=== PATIENT | male | born 1945 | race Caucasian/White ===

== ENCOUNTER 2022-08-28 09:53 | Emergency (ER) | payer OTHER ==
[~2022-08-28] VITALS: Ht 182.9 cm; Wt 92.1 kg
[2022-08-28 10:19] LABS: BASOPHILS % (AUTO) 0.2 % (0.0-5.0); EOSINOPHILS % (AUTO) 2.4 % (0.0-8.0); HEMATOCRIT 42.5 % (42-54); LYMPHOCYTES % (AUTO) 23.8 % (21.0-51.0); MEAN CORPUSCULAR HEMOGLOBIN 30.8 pg (27.0-33.0); MEAN CORPUSCULAR HGB CONC 33.4 g/dL (32.0-36.0); MEAN CORPUSCULAR VOLUME 92.2 fL (79-99); MONOCYTES % (AUTO) 10.5 % (3.0-13.0); NEUTROPHILS % (AUTO) 62.7 % (40.0-77.0); PLATELET COUNT (AUTO) 168 K/uL (130-400); RED BLOOD CELL COUNT(AUTO) 4.61 MIL/uL (4.50-6.20); RED CELL DISTRIBUTION WIDTH 12.1 % (11.0-15.5); WHITE BLOOD COUNT (AUTO) 12.1 K/uL (4.8-10.8)
[2022-08-28 10:31] LABS: ALBUMIN 3.7 g/dL (3.5-5.0); CREATININE 1.2 mg/dL (0.5-1.5); POTASSIUM 4.6 mmol/L (3.5-5.1); TOTAL PROTEIN, SERUM 6.8 g/dL (6.0-8.3)
[2022-08-28 11:06] VITALS: BP 94/62
[2022-08-28] MEDS ORDERED: OSEL75 PO (12:31)
[2022-08-28] MEDS ORDERED: NYST5ORA7 (12:31)
== END 2022-08-28 12:42 | disposition home or self-care (01) ==
LOC: EDH 09:53
DX: J10.1 Influenza due to other identified influenza virus with other respiratory manifestations (principal); B37.0 Candidal stomatitis; J45.909 Unspecified asthma, uncomplicated; Z20.822 Contact with and (suspected) exposure to COVID-19
CPT/HCPCS: 99285; 71045; 87635; 84484; 80053; 85025; 87804 ×2; 36415; 93005; C9803

== ENCOUNTER → 2023-10-11 | Outpatient (CLI) | payer OTHER ==
[~2023-10-11] MED LIST: ASPI-1443 PO; CLOP-31 PO; GABA-529 PO; PANT40TA54 PO; ROSU5TAB12 PO; TAMS-1 PO
== END | disposition home or self-care (01) ==
LOC: RAH 07:12
PROVIDERS: ATTEND Internal Medicine Gastroenterology
DX: R14.0 Abdominal distension (gaseous) (principal); R11.0 Nausea; R10.10 Upper abdominal pain, unspecified
CPT/HCPCS: 78264; A9541